=== PATIENT | female | born 1925 | race Caucasian/White ===

== ENCOUNTER 2016-05-25 22:18 | Inpatient (IN) | payer MEDICARE, OTHER ==
[2016-05-25] MEDS ORDERED: NS 0.9% 1000 ML* 1,000 ML IV SCH (22:45)
[2016-05-25 23:00] LABS: Hematocrit 37 % (35-47); Mean Corpuscular HGB Conc 33 g/dl (31-36); Mean Corpuscular Hemoglobin 29 pg (27-31); Mean Corpuscular Volume 88 fL (80-97); Mean Platelet Volume 8 um3 (7.4-10.4); Red Blood Count 4.18 10^6/ul (4.0-5.4); Red Cell Distribution Width 15 % (10.5-15); White Blood Count 13.1 10^3/ul (3.5-10.8)
[2016-05-25 23:16] LABS: Albumin 3.9 g/dL (3.2-5.2); C Reactive Protein 13.42 mg/L (< 5.00); Calcium 9.4 mg/dL (8.6-10.3); EGFR African American 31.4 (>60); EGFR Non-African American 24.4 (>60); Globulin 3.5 g/dL (2-4); Magnesium 1.8 mg/dL (1.9-2.7); Potassium 3.5 mmol/L (3.5-5.0); Total Bilirubin 0.8 mg/dL (0.2-1.0); Total Protein 7.4 g/dL (6.4-8.9)
[2016-05-25 23:29] LABS: Troponin I 0.06 ng/mL (<0.04)
[2016-05-25 23:59] LABS: TSH (Thyroid Stimulating Horm) 0.67 mcIU/mL (0.34-5.60)
[2016-05-26] MEDS ORDERED: cefTRIAXone(*) 1 GM in NS 0.9% 50 ML* 50 ML IVPB ONE (00:03)
--- NOTE | 2016-05-26 00:56 | ED ---
Vinod Cabezas Adam, scribed for Brandon Tuttle MD on 05/25/16 at 2240 . Complex/Multi-Sys Presentation - HPI Summary HPI Summary: Pt is an 89 year old female presenting with malaise, weakness, and frequent urination for the past 2 days. She states that she came in because her daughter was concerned that she might fall because of the increased weakness. Pt has CHF and is on o2 at night at home. EMS reported that her o2 sat was in the 80's upon their arrival tonight. She reports feeling SOB as well as having a cough. She also has a low-grade fever of 100.5 in the ED. Pt also c/o chronic edema in her ankles and frequent constipation. She has been urinating frequently over the past 2 days but she denies any burning sensation, abdominal pain, or confusion. PMHx includes CHF, CAD, HTN, HLD, and peripheral vascular disease. She is on Lasix. - History Of Current Complaint Chief Complaint: EDGeneral Time Seen by Provider: 05/25/16 22:23 Hx Obtained From: Patient Onset/Duration: Gradual Onset, Lasting Days, Still Present Timing: Constant Severity Currently: Moderate Severity Initially: Moderate Aggravating Factor(s): Nothing Alleviating Factor(s): Nothing Associated Signs And Symptoms: Positive: Weakness, SOB, Cough, Edema, Fever, Other - Constipation. Negative: Confusion, Abdominal Pain - Allergies/Home Medications Allergies/Adverse Reactions: Allergies Allergy/AdvReac Type Severity Reaction Status Date / Time No Known Allergies Allergy Verified 12/12/15 13:42 PMH/Surg Hx/FS Hx/Imm Hx Cardiovascular History: Reports: Hx Angina, Hx Angioplasty, Hx Congenital Heart Disease, Hx Congestive Heart Failure, Hx Coronary Artery Disease, Hx Hypercholesterolemia, Hx Hypertension - CONTROL WITH MEDS, Hx Peripheral Vascular Disease, Hx Rheumatic Fever - HX OF, Hx Syncope, Other Cardiovascular Problems/Disorders - Rheumatic Heart Disease since 12 yo Denies: Hx Myocardial Infarction, Hx Valvular Heart Disease Respiratory History: Reports: Hx Sleep Apnea - MILD 2 LITERS OXYGEN WITH NASAL CANNULA Denies: Hx Asthma, Hx Chronic Obstructive Pulmonary Disease (COPD) History: Reports: Other Problems/Disorders - INCONTINENCE, HX OF BLADDER INFECTION - SYSTEMIC Musculoskeletal History: Reports: Hx Arthritis - MINOR Sensory History: Reports: Hx Cataracts - HX OF, Hx Contacts or Glasses - GLASSES - RARELY WEARS Denies: Hx Hearing Aid - HEARING PROBLEMS BUT NO HEARING AID Opthamlomology History: Reports: Hx Cataracts - HX OF, Hx Contacts or Glasses - GLASSES - RARELY WEARS - Surgical History Surgery Procedure, Year, and Place: 193 TONSILLECTOMY. 1960 HYSTERECTOMY,. 2010 BILATERAL CATARACT EXTRACTION WITH IOL IMPLANT, [place], [place]. 1985 ANGIOPLASTY, [place]. HEMORROIDECTOMY AND PELVIC MASS,. 08/2014 [place]PL[place] [employer] [place] [facility] [place] [facility] [place] Anesthesia Reactions: No - Immunization History Date of Tetanus Vaccine: unk Date of Influenza Vaccine: fall 2015 Infectious Disease History: No Infectious Disease History: Denies: Traveled Outside the [place] in Last 30 Days - Family History Known Family History: Positive: Cardiac Disease - CAD (mother) - Social History Occupation: Retired Lives: With Family - Daughter Alcohol Use: None Hx Substance Use: No Substance Use Type: Reports: None Hx Tobacco Use: No Smoking Status (MU): Former Smoker Type: Cigarettes Have You Smoked in the Last Year: No Review of Systems Positive: Fever, Fatigue Positive: Shortness Of Breath, Cough Positive: Other - Constipation. Negative: Abdominal Pain Positive: frequency. Negative: burning Positive: Edema Positive: Weakness - Generalized All Other Systems Reviewed And Are Negative: Yes Physical Exam Triage Information Reviewed: Yes Vital Signs On Initial Exam: Initial Vitals Temp Pulse Resp BP Pulse Ox 100.5 F 84 18 144/56 96 05/25/16 22:23 05/25/16 22:23 05/25/16 22:23 05/25/16 22:23 05/25/16 22:23 Vital Signs Reviewed: Yes Appearance: Positive: Well-Appearing, No Pain Distress Skin: Positive: Warm, Skin Color Reflects Adequate Perfusion, Dry Head/Face: Positive: Normal Head/Face Inspection Eyes: Positive: EOMI, HUNTER ENT: Positive: Normal ENT inspection Neck: Positive: Supple, Nontender Respiratory/Lung Sounds: Positive: Clear to Auscultation, Breath Sounds Present Cardiovascular: Positive: RRR Abdomen Description: Positive: Nontender, Soft Bowel Sounds: Positive: Present Musculoskeletal: Positive: Normal, Strength/ROM Intact Neurological: Positive: Normal, Sensory/Motor Intact, Alert, Oriented to Person Place, Time Psychiatric: Positive: Affect/Mood Appropriate - [place] Coma Scale Coma Scale Total: 15 Diagnostics - Vital Signs Vital Signs Temp Pulse Resp BP Pulse Ox 05/25/16 22:23 100.5 F 84 18 144/56 96 - Laboratory Lab Results: Lab Results 05/25/16 05/25/16 05/25/16 Range/Units 22:50 22:50 22:50 WBC 13.1 H (3.5-10.8) 10^3/ul RBC 4.18 (4.0-5.4) 10^6/ul Hgb 12.0 (12.0-16.0) g/dl Hct 37 (35-47) % MCV 88 (80-97) fL MCH 29 (27-31) pg MCHC 33 (31-36) g/dl RDW 15 (10.5-15) % Plt Count 204 (150-450) 10^3/ul MPV 8 (7.4-10.4) um3 Neut % (Auto) 93.7 H (38-83) % Lymph % (Auto) 2.6 L (25-47) % Hale % (Auto) 3.3 (1-9) % Eos % (Auto) 0 (0-6) % Baso % (Auto) 0.4 (0-2) % Absolute Neuts (auto) 12.3 H (1.5-7.7) 10^3/ul Absolute Lymphs (auto) 0.3 L (1.0-4.8) 10^3/ul Absolute Monos (auto) 0.4 (0-0.8) 10^3/ul Absolute Eos (auto) 0 (0-0.6) 10^3/ul Absolute Basos (auto) 0.1 (0-0.2) 10^3/ul Absolute Nucleated RBC 0 10^3/ul Nucleated RBC % 0 INR (Anticoag Therapy) 2.12 H (0.89-1.11) APTT 39.7 H (26.0-36.3) seconds Sodium 138 (133-145) mmol/L Potassium 3.5 (3.5-5.0) mmol/L Chloride 97 L (101-111) mmol/L Carbon Dioxide 31 (22-32) mmol/L Anion Gap 10 (2-11) mmol/L BUN 29 H (6-24) mg/dL Creatinine 1.93 H (0.51-0.95) mg/dL Est GFR ( Amer) 31.4 (>60) Est GFR (Non-Af Amer) 24.4 (>60) BUN/Creatinine Ratio 15.0 (8-20) Glucose 138 H (70-100) mg/dL Lactic Acid (0.5-2.0) mmol/L Calcium 9.4 (8.6-10.3) mg/dL Magnesium 1.8 L (1.9-2.7) mg/dL Total Bilirubin 0.80 (0.2-1.0) mg/dL AST 14 (13-39) U/L ALT 7 (7-52) U/L Alkaline Phosphatase 81 (34-104) U/L Troponin I 0.06 H* (<0.04) ng/mL C-Reactive Protein 13.42 H (< 5.00) mg/L B-Natriuretic Peptide ( - 100) pg/mL Total Protein 7.4 (6.4-8.9) g/dL Albumin 3.9 (3.2-5.2) g/dL Globulin 3.5 (2-4) g/dL Albumin/Globulin Ratio 1.1 (1-3) Lipase 31 (11.0-82.0) U/L TSH 0.67 (0.34-5.60) mcIU/mL 05/25/16 05/25/16 Range/Units 22:50 22:50 WBC (3.5-10.8) 10^3/ul RBC (4.0-5.4) 10^6/ul Hgb (12.0-16.0) g/dl Hct (35-47) % MCV (80-97) fL MCH (27-31) pg MCHC (31-36) g/dl RDW (10.5-15) % Plt Count (150-450) 10^3/ul MPV (7.4-10.4) um3 Neut % (Auto) (38-83) % Lymph % (Auto) (25-47) % Hale % (Auto) (1-9) % Eos % (Auto) (0-6) % Baso % (Auto) (0-2) % Absolute Neuts (auto) (1.5-7.7) 10^3/ul Absolute Lymphs (auto) (1.0-4.8) 10^3/ul Absolute Monos (auto) (0-0.8) 10^3/ul Absolute Eos (auto) (0-0.6) 10^3/ul Absolute Basos (auto) (0-0.2) 10^3/ul Absolute Nucleated RBC 10^3/ul Nucleated RBC % INR (Anticoag Therapy) (0.89-1.11) APTT (26.0-36.3) seconds Sodium (133-145) mmol/L Potassium (3.5-5.0) mmol/L Chloride (101-111) mmol/L Carbon Dioxide (22-32) mmol/L Anion Gap (2-11) mmol/L BUN (6-24) mg/dL Creatinine (0.51-0.95) mg/dL Est GFR ( Amer) (>60) Est GFR (Non-Af Amer) (>60) BUN/Creatinine Ratio (8-20) Glucose (70-100) mg/dL Lactic Acid 0.9 (0.5-2.0) mmol/L Calcium (8.6-10.3) mg/dL Magnesium (1.9-2.7) mg/dL Total Bilirubin (0.2-1.0) mg/dL AST (13-39) U/L ALT (7-52) U/L Alkaline Phosphatase (34-104) U/L Troponin I (<0.04) ng/mL C-Reactive Protein (< 5.00) mg/L B-Natriuretic Peptide 491 H ( - 100) pg/mL Total Protein (6.4-8.9) g/dL Albumin (3.2-5.2) g/dL Globulin (2-4) g/dL Albumin/Globulin Ratio (1-3) Lipase (11.0-82.0) U/L TSH (0.34-5.60) mcIU/mL Result Diagrams: 05/25/16 22:50 05/25/16 22:50 Lab Statement: Any lab studies that have been ordered have been reviewed, and results considered in the medical decision making process. - Additional Comments Diagnostic Additional Comments: Troponin I - 0.06 Complex Multi-Symp Course/Dx Assessment/Plan: ADMIT HOSPITALIST STABLE. - Diagnoses Provider Diagnoses: Weakness, Fever - Physician Notifications Discussed Care Of Patient With: Dr. Rodas (Hospitalist) at 23:55. Discharge - Discharge Plan Condition: Stable Disposition: ADMITTED TO [facility] documentation as recorded by the Vinod bennett Adam accurately reflects the service I personally performed and the decisions made by me, Brandon Tuttle MD.
[2016-05-26] MEDS ORDERED: Azithromycin IV(*) 500 MG in NS 0.9% 250 ML* 250 ML IVPB ONE (01:10)
[2016-05-26] MEDS ORDERED: Docusate CAP* 100 MG PO PRN (01:11)
[2016-05-26] MEDS ORDERED: Senna TAB PO PRN (01:11)
[2016-05-26] MEDS ORDERED: Ondansetron INJ* 2 MG/ML VIAL IV PRN (01:11)
[2016-05-26] MEDS ORDERED: Al Hydrox/Mg Hydrox/Simet LIQ* 30 ML UDC PO PRN (01:11)
[2016-05-26] MEDS ORDERED: Albuterol/Ipratropium NEB.SOL* Albuterol 2.5 MG/Ipratropium 0.5 MG 3 ML INH PRN (01:12)
[2016-05-26] MEDS ORDERED: Albuterol 2.5 MG/3 ML NEB.SOL* (0.083%) INH PRN (01:13)
[2016-05-26] MEDS: Acetaminophen TAB* 325 MG PO PRN ×2 (02:10→19:54)
[2016-05-26 02:25] LABS: Urine Bacteria 1+ (Absent); Urine Bilirubin Negative (Negative); Urine Glucose Negative (Negative); Urine Nitrite Negative (Negative)
--- NOTE | 2016-05-26 04:32 | HP ---
HISTORY AND PHYSICAL: DATE OF ADMISSION: 05/26/16. TIME OF EVALUATION: 0100. PRIMARY CARE PHYSICIAN: Ana Luisa Oden NP. CHIEF COMPLAINT: Weakness and cough. HISTORY OF PRESENT ILLNESS: This is an 89-year-old female with a past medical history of diastolic heart failure, paroxysmal atrial fibrillation, COPD, on 2 L at bedtime, who presents to the emergency room with worsening cough. The daughter is at the bedside, who provides most of the history. She states for the past three weeks she has had a clear productive cough off and on that was thought to be related to her heart and she has been doubled on her doses of Lasix and potassium chloride by Dr. Malave on Mondays, Wednesdays and Fridays. Today, the cough persisted and got worse and the patient was more lethargic and weak and had a low grade temp. She also noted that her saturations were in the 80s at home and her daughter came to see her and she was working harder to breathe, so they called the EMS for further evaluation. The patient denies any chest pain. No nausea, vomiting. She has had loose stools over the past few days. No abdominal pain. No headache just a persistent productive cough. She is also concerned about her worsening urinary incontinence secondary to the persistent cough. When she increased her oxygen from 1 L to 3 L, her sat went from the 80s to 90s. Otherwise, remainder of the review of system is negative. In emergency room, the patient had labs, imaging. She was given 1 gram of ceftriaxone, 500 mg of azithromycin and was referred to the hospitalist service for further evaluation. PAST MEDICAL HISTORY: 1. History of breast cancer, status post mastectomy in October 2015. 2. COPD on 2 L of oxygen at bedtime. 3. History of moderate aortic stenosis. 4. Peripheral vascular disease. 5. Congestive heart failure with preserved EF. 6. Coronary artery disease. 7. CKD. 8. Paroxysmal atrial fibrillation. 9. Hyperlipidemia. 10. Hypertension. MEDICATIONS: The medications needed to be clarified. The patient was not clear on the dosages. 1. Xarelto in the morning. 2. Metoprolol 25 mg in the morning 50 mg in the evening. 3. Cilostazol p.o. b.i.d. 4. Multaq p.o. b.i.d. 5. Pravastatin at bedtime. 6. Lasix double dose on Mondays, Wednesdays, Fridays. 7. Klor-Con double dose on Mondays, Wednesdays, Fridays as well. ALLERGIES: No known drug allergies. SOCIAL HISTORY: The patient lives alone in an apartment. She does have a caregiver that comes in every morning to help with getting her ready and showering and her daughter visits frequently. Her daughter is Seble, who is also her healthcare proxy ([phone]). The patient quit smoking over 40 years ago, which she has 20-pack year history. No alcohol use. MOLST form, the daughter is going to bring in. She is a DNR/DNI. REVIEW OF SYSTEMS: As mentioned in the HPI. FAMILY HISTORY: Reviewed and noncontributory. PHYSICAL EXAMINATION GENERAL: Mild respiratory distress, lethargic, but awakes easily. Her daughter is at the bedside. VITAL SIGNS: T-max 100.5, pulse rate 84, respiratory rate 18, oxygen saturation 96% on 2 L, blood pressure 144/56. HEENT: Pupils equal and reactive and anicteric. Head: Normocephalic. Oropharynx: Mucous membranes dry. NECK: Supple. No lymphadenopathy. RESPIRATORY: Poor respiratory effort. Poor aeration. Unable to appreciate any adventitious breath sounds. CARDIAC: Systolic murmur heard throughout all bases. Regular rate and rhythm. ABDOMEN: Soft, nontender, nondistended. EXTREMITIES: No clubbing, cyanosis, or edema. +1 DPs. NEUROLOGIC: Alert and oriented x3. No focal neurologic deficits. LABORATORY DATA: White count 13.1, hemoglobin 12, hematocrit 37, platelets 204. INR 2.12. Sodium 138, potassium 6.5, chloride 97, bicarb 31, BUN 29, creatinine 1.93. Mag 1.8. Troponin 0.06. BNP 491. Chest x-ray, no significant change from prior chest x-rays. EKG is not yet done. ASSESSMENT AND PLAN: This is an 89-year-old female with a past medical history of chronic obstructive pulmonary disease, on oxygen at 2 L and diastolic heart failure, who presents to the emergency room with worsening cough and low-grade temp. 1. Cough. Assessment: The patient likely with community-acquired pneumonia. I suspect her chest x-ray will change once she was given fluid resuscitation. Could also be chronic obstructive pulmonary disease exacerbation, although she has never been on inhalers in the past. I suspect that she may benefit from them. Plan: We will continue her on IV fluids. We will change her antibiotics to Levaquin. We will give her a dose of 750 mg and then renally dose it depending on what her renal function is in the morning. We will not order any more Levaquin, but this will need to be followed up. We will also do trial DuoNeb and albuterol as needed. Follow up on her blood cultures and her urine. Chronic medical problems. 2. Paroxysmal atrial fibrillation, on anticoagulation. The patient's creatinine clearance is calculated at 16. We will continue her on Xarelto at 15 mg renally dosed, but we would reevaluate the patient with renal failure and 89, on anticoagulation. The patient appears to be in sinus. We will follow up on EKG. We will continue her on metoprolol and her Multaq. 3. Chronic kidney disease. The patient displayed worsening in her renal function likely in the setting of infectious etiology. We will hold her Lasix at this time. Renally dose her medications. 4. Peripheral vascular disease. Continue her cilostazol. 5. Hyperlipidemia. We will hold her pravastatin, as it is nonformulary. 6. Congestive heart failure with preserved EF. We will hold her Lasix in the setting of pneumonia. 7. FEN. We will place the patient on heart healthy diet with gentle IV fluids. 8. DVT prophylaxis. The patient is on Xarelto. 9. Code status. The patient is a DNR/DNI. Her daughter is going to bring in her MOLST form. PATIENT TIME: Greater than 50 minutes was spent doing the history and physical , more than half the time spent in direct patient contact. CC: Ana Luisa Oden NP.* [id number]/[facility] #: [id number] MAYANK
[2016-05-26 05:38] LABS: Hematocrit 33 % (35-47); Hemoglobin 10.5 g/dl (12.0-16.0); Mean Corpuscular HGB Conc 32 g/dl (31-36); Mean Corpuscular Hemoglobin 28 pg (27-31); Mean Corpuscular Volume 88 fL (80-97); Mean Platelet Volume 8 um3 (7.4-10.4); Red Blood Count 3.69 10^6/ul (4.0-5.4); Red Cell Distribution Width 15 % (10.5-15); White Blood Count 14.6 10^3/ul (3.5-10.8)
[2016-05-26 05:40] LABS: BUN/Creatinine Ratio 15.2 (8-20); Calcium 8.5 mg/dL (8.6-10.3); EGFR African American 39.6 (>60); EGFR Non-African American 30.8 (>60); Potassium 3.4 mmol/L (3.5-5.0)
[2016-05-26] MEDS: NS 0.9% 1000 ML* 1,000 ML IV SCH ×2 (05:43→07:43)
[2016-05-26 05:46] LABS: Troponin I 0.08 ng/mL (<0.04)
[2016-05-26] MEDS ORDERED: Heparin VIAL(*) 5000 UNITS/ML VIAL (FIVE THOUSAND) SUBCUT SCH (06:00)
--- NOTE | 2016-05-26 07:43 | RAD ---
INDICATION: Weakness and fever COMPARISON: Most recent comparison chest x-rays dated September 07, 2015 TECHNIQUE: Single AP portable view of the chest was obtained. FINDINGS: Image quality is compromised due to the relative inferiority of a portable chest x-ray. The heart and mediastinum exhibit normal size and contour. Again seen are horizontal densities at the bilateral lung bases larger on the right than the left. There is stable patchy density as well as linear density overlying the mid level and right lower lobe when compared to the previous chest x-ray. Remaining visualized lungs are clear. Visualized bones are normal for the patient's age. IMPRESSION: Small interval increase in apparent right greater than left pleural effusions.
[2016-05-26] MEDS: Cilostazol TAB* 100 MG PO SCH ×2 (08:47→19:54)
[2016-05-26] MEDS: Oseltamivir CAP* 30 MG CAP PO SCH ×2 (08:47→09:20)
[2016-05-26] MEDS: Rivaroxaban TAB(*) 15 MG PO SCH (08:48)
[2016-05-26] MEDS: Dronedarone TAB* 400 MG PO SCH ×2 (08:48→19:54)
[2016-05-26] MEDS: Metoprolol Tartrate TAB* 25 MG PO SCH ×2 (08:48→19:54)
[2016-05-26] MEDS ORDERED: Piperac/Tazob 3.375 gm in NS* 3.375 GM/100 ML BAG IVPB SCH (09:00)
[2016-05-26] MEDS ORDERED: NS 0.9% 1000 ML* 1,000 ML IV SCH (09:57)
--- NOTE | 2016-05-26 10:02 | PN ---
Subjective Date of Service: 05/26/16 Interval History: HOSPITALIST PROGRESS NOTE Patient seen and examined at bedside. She is lethargic, arousable, states she doesn't feel well and is not hungry. More responsive when her daughter was present and was able to eat some ice cream. Family History: Unchanged from Admission Social History: Unchanged from Admission Past Medical History: Unchanged from Admission Objective Active Medications: Acetaminophen (Tylenol Tab*) 650 mg PO Q4H PRN PRN Reason: FEVER/PAIN Last Admin: 05/26/16 02:10 Dose: 650 mg Al Hydrox/Mg Hydrox/Simethicone (Maalox Plus*) 30 ml PO Q6H PRN PRN Reason: INDIGESTION Albuterol (Ventolin 2.5 Mg/3 Ml Neb.Elba*) 2.5 mg INH Q2H PRN PRN Reason: SOB/WHEEZING Albuterol/Ipratropium (Duoneb Neb.Elba*) 1 neb INH Q4H PRN PRN Reason: SOB/WHEEZING Cilostazol (Pletal Tab*) 100 mg PO BID [facility] Last Admin: 05/26/16 08:47 Dose: 100 mg Docusate Sodium (Colace Cap*) 100 mg PO BID PRN PRN Reason: CONSTIPATION Dronedarone (Multaq Tab*) 400 mg PO BID [facility] Last Admin: 05/26/16 08:48 Dose: 400 mg Sodium Chloride (Ns 0.9% 1000 Ml*) 1,000 mls @ 100 mls/hr IV PER RATE [facility] Doxycycline Hyclate 100 mg/ (Sodium Chloride) 250 mls @ 250 mls/hr IVPB Q12H [facility] Metoprolol Tartrate (Lopressor Tab*) 25 mg PO BID [facility] Last Admin: 05/26/16 08:48 Dose: 25 mg Ondansetron HCl (Zofran Inj*) 4 mg IV Q4H PRN PRN Reason: NAUSEA/VOMITING Oseltamivir Phosphate (Tamiflu Cap*) 30 mg PO DAILY [facility] Last Admin: 05/26/16 09:20 Dose: Not Given Rivaroxaban (Xarelto(*)) 15 mg PO DAILY [facility] Last Admin: 05/26/16 08:48 Dose: 15 mg Senna (Senokot Tab*) 1 tab PO BID PRN PRN Reason: CONSTIPATION Vital Signs 05/26/16 05/26/16 05/26/16 03:33 05:25 07:50 Temperature 98.8 F Pulse Rate 72 Respiratory 16 20 Rate Blood Pressure 174/75 145/42 (mmHg) O2 Sat by Pulse 100 Oximetry Oxygen Devices in Use Now: Nasal Cannula Appearance: Elderly lady lying in bed in NAD. Eyes: No Scleral Icterus Ears/Nose/Mouth/Throat: Mucous Membranes Moist Neck: Trachea Midline Respiratory: Symmetrical Chest Expansion and Respiratory Effort, - - BS+ bilaterally coarse with no added sounds Cardiovascular: RRR - Normal S1 and S2 Abdominal: NL Sounds; No Tenderness; No Distention Extremities: No Edema Neurological: - - Lethargic, arousable to voice, oriented to self, MAGANA, but with generalized weakness Lines/Tubes/Other Access: Clean, Dry and Intact Peripheral IV Nutrition: Taking PO's Result Diagrams: 05/26/16 04:58 05/26/16 04:58 Assess/Plan/Problems-Billing Assessment: Mrs. Beasley is an 89yo F with PMH of breast CA s/p left lumpectomy November 2015 , COPD on home O2 2 liters, moderate , PVD, diastolic CHF, CAD, CKD stage 3, paroxysmal Afib, HLD, HTN, who presented to ED with weakness and cough, found to have Influenza A. - Patient Problems (1) Sepsis Comment: - Met sepsis criteria with fever and tachycardia. - Source is Influenza A. (2) Influenza A Comment: - Patient presented with c/o weakness, cough, Influenza A was positive. - As per daughter, patient received Flu and Pneumonia vaccines. - Start Tamiflu. (3) Pneumonia Comment: - CxR shows mild worsening of her chronic right pleural effusion and some suggestion of right base infiltrate. This could be bacterial on top of her viral infection. - Will switch antibiotics to Doxycyline. (4) Chronic hypoxemic respiratory failure Comment: - Continue supplemental O2. (5) Paroxysmal atrial fibrillation Comment: - Patient is NSR. - Continue Multaq. - Continue Rivaroxaban 15mg/day (renally adjusted dose). (6) Peripheral vascular disease Comment: - Continue Cilostazol. (7) Dyslipidemia Comment: - Continue statin. (8) Diastolic CHF Comment: - Stable. - Furosemide on hold in the setting of infection. (9) Elevated troponin Comment: - Secondary to demand ischemia in the setting of sepsis. (10) DVT prophylaxis Comment: - Rivaroxaban. (11) DNR (do not resuscitate) Status and Disposition: Inpatient. Daughter updated at bedside.
[2016-05-26] MEDS: DOXYcycline IV* 100 MG in NS 0.9% 250 ML* 250 ML IVPB SCH ×2 (11:16→22:27)
[2016-05-26] MEDS ORDERED: Potassium Chloride LIQUID* 20 MEQ PACKET PO ONE (17:00)
[2016-05-26] MEDS: Atorvastatin* 10 MG TAB PO SCH (17:12)
[2016-05-26] MEDS: KCL 10 MEQ/50 ML IVPREMIX* 10 MEQ/50 ML BAG IV SCH ×3 (17:15→21:10)
[2016-05-26] MEDS ORDERED: NS 0.9% 250 ML* 250 ML ONE (21:06)
[2016-05-26] MEDS ORDERED: methylPREDNISolone 125 MG* 2 ML VIAL IV ONE (21:24)
[2016-05-27] MEDS ORDERED: Levofloxacin 750 MG IVPREMIX(* 750 MG/150 ML BAG IVPB ONE (01:23)
[2016-05-27] MEDS ORDERED: Azithromycin IV(*) 250 MG in NS 0.9% 250 ML* 250 ML IVPB SCH (02:00)
[2016-05-27 05:29] LABS: Hematocrit 31 % (35-47); Hemoglobin 10.1 g/dl (12.0-16.0); Mean Corpuscular HGB Conc 32 g/dl (31-36); Mean Corpuscular Hemoglobin 29 pg (27-31); Mean Corpuscular Volume 90 fL (80-97); Mean Platelet Volume 9 um3 (7.4-10.4); Red Blood Count 3.47 10^6/ul (4.0-5.4); Red Cell Distribution Width 15 % (10.5-15); White Blood Count 8.8 10^3/ul (3.5-10.8)
[2016-05-27 05:45] LABS: Calcium 8.4 mg/dL (8.6-10.3); EGFR African American 36.1 (>60); EGFR Non-African American 28.1 (>60); Potassium 4.3 mmol/L (3.5-5.0)
--- NOTE | 2016-05-27 07:35 | RAD ---
INDICATION: Increased shortness of breath. COMPARISON: Comparison is made with prior chest x-ray study from May 25 2016. TECHNIQUE: A portable view of the chest was obtained. FINDINGS: The heart appears mildly enlarged for this portable exam and unchanged. There are bibasilar infiltrates which have increased from the prior exam. There are small to moderate size bilateral pleural effusions right greater than left which appear unchanged. IMPRESSION: 1. BIBASILAR INFILTRATES, INCREASED. 2. BILATERAL PLEURAL EFFUSIONS, UNCHANGED.
[2016-05-27] MEDS ORDERED: NS 0.9% 1000 ML* 1,000 ML IV SCH (07:46)
[2016-05-27] MEDS: Cilostazol TAB* 100 MG PO SCH ×2 (09:19→21:27)
[2016-05-27] MEDS: Dronedarone TAB* 400 MG PO SCH ×2 (09:20→21:28)
[2016-05-27] MEDS: Metoprolol Tartrate TAB* 25 MG PO SCH ×2 (09:21→21:32)
[2016-05-27] MEDS: Rivaroxaban TAB(*) 15 MG PO SCH (09:22)
[2016-05-27] MEDS: Oseltamivir CAP* 30 MG CAP PO SCH (09:23)
[2016-05-27] MEDS: DOXYcycline IV* 100 MG in NS 0.9% 250 ML* 250 ML IVPB SCH ×2 (09:57→21:28)
--- NOTE | 2016-05-27 12:22 | PN ---
Subjective Date of Service: 05/27/16 Interval History: HOSPITALIST PROGRESS NOTE Patient seen and examined at bedside. She feels much better today. Doesn't remember much of yesterday, but states she feels stronger. Had cereal for breakfast and appetite is coming back. Denies CP , palpitations, dyspnea but has some moist cough. Family History: Unchanged from Admission Social History: Unchanged from Admission Past Medical History: Unchanged from Admission Objective Active Medications: Acetaminophen (Tylenol Tab*) 650 mg PO Q4H PRN PRN Reason: FEVER/PAIN Last Admin: 05/26/16 19:54 Dose: 650 mg Al Hydrox/Mg Hydrox/Simethicone (Maalox Plus*) 30 ml PO Q6H PRN PRN Reason: INDIGESTION Albuterol (Ventolin 2.5 Mg/3 Ml Neb.Elba*) 2.5 mg INH Q2H PRN PRN Reason: SOB/WHEEZING Albuterol/Ipratropium (Duoneb Neb.Elba*) 1 neb INH Q4H PRN PRN Reason: SOB/WHEEZING Last Admin: 05/26/16 20:30 Dose: 1 neb Atorvastatin Calcium (Lipitor*) 10 mg PO 1700 [facility] Last Admin: 05/26/16 17:12 Dose: 10 mg Cilostazol (Pletal Tab*) 100 mg PO BID [facility] Last Admin: 05/27/16 09:19 Dose: 100 mg Docusate Sodium (Colace Cap*) 100 mg PO BID PRN PRN Reason: CONSTIPATION Dronedarone (Multaq Tab*) 400 mg PO BID [facility] Last Admin: 05/27/16 09:20 Dose: 400 mg Doxycycline Hyclate 100 mg/ (Sodium Chloride) 250 mls @ 250 mls/hr IVPB Q12H [facility] Last Admin: 05/27/16 09:57 Dose: 250 mls/hr Metoprolol Tartrate (Lopressor Tab*) 25 mg PO BID [facility] Last Admin: 05/27/16 09:21 Dose: 25 mg Ondansetron HCl (Zofran Inj*) 4 mg IV Q4H PRN PRN Reason: NAUSEA/VOMITING Oseltamivir Phosphate (Tamiflu Cap*) 30 mg PO DAILY [facility] Last Admin: 05/27/16 09:23 Dose: 30 mg Rivaroxaban (Xarelto(*)) 15 mg PO DAILY [facility] Last Admin: 05/27/16 09:22 Dose: 15 mg Senna (Senokot Tab*) 1 tab PO BID PRN PRN Reason: CONSTIPATION Vital Signs 05/27/16 11:20 Temperature 98.5 F Pulse Rate 75 Respiratory 20 Rate Blood Pressure 143/46 (mmHg) O2 Sat by Pulse 97 Oximetry Oxygen Devices in Use Now: Nasal Cannula Appearance: Pleasant elderly lady sitting up in bed in NAD. Eyes: No Scleral Icterus Ears/Nose/Mouth/Throat: Mucous Membranes Moist Neck: Trachea Midline Respiratory: Symmetrical Chest Expansion and Respiratory Effort, Clear to Auscultation - decreased in right base Cardiovascular: RRR - Normal S1 and S2 Abdominal: NL Sounds; No Tenderness; No Distention Extremities: No Edema Neurological: Alert and Oriented x 3, NL Muscle Strength and Tone Lines/Tubes/Other Access: Clean, Dry and Intact Peripheral IV Nutrition: Taking PO's Result Diagrams: 05/27/16 04:52 05/27/16 04:52 Assess/Plan/Problems-Billing Assessment: Mrs. Beasley is an 89yo F with PMH of breast CA s/p left lumpectomy November 2015 , COPD on home O2 2 liters, moderate , PVD, diastolic CHF, CAD, CKD stage 3, paroxysmal Afib, HLD, HTN, who presented to ED with weakness and cough, found to have Influenza A. - Patient Problems (1) Sepsis Comment: - Met sepsis criteria with fever and tachycardia. - Source is Influenza A. (2) Influenza A Comment: - Patient presented with c/o weakness, cough, Influenza A was positive. - As per daughter, patient received Flu and Pneumonia vaccines. - Continue Tamiflu. - Doing much better today, mental status back to baseline. (3) Pneumonia Comment: - CxR shows mild worsening of her chronic right pleural effusion and some suggestion of right base infiltrate. This could be bacterial on top of her viral infection. - Continue Doxycyline. (4) Chronic hypoxemic respiratory failure Comment: - Continue supplemental O2. (5) Paroxysmal atrial fibrillation Comment: - Patient is NSR. - Continue Multaq. - Continue Rivaroxaban 15mg/day (renally adjusted dose). (6) Peripheral vascular disease Comment: - Continue Cilostazol. (7) Dyslipidemia Comment: - Continue statin. (8) Diastolic CHF Comment: - Stable. - Furosemide on hold in the setting of infection. (9) Elevated troponin Comment: - Secondary to demand ischemia in the setting of sepsis. - D/c Telemetry. (10) DVT prophylaxis Comment: - Rivaroxaban. (11) DNR (do not resuscitate) Status and Disposition: Inpatient.
[2016-05-27] MEDS: Atorvastatin* 10 MG TAB PO SCH (17:21)
[2016-05-27] MEDS ORDERED: NS 0.9% 250 ML* 250 ML ONE (21:24)
[2016-05-28] MEDS: DOXYcycline IV* 100 MG in NS 0.9% 250 ML* 250 ML IVPB SCH (09:42)
[2016-05-28] MEDS: Dronedarone TAB* 400 MG PO SCH ×2 (09:42→21:08)
[2016-05-28] MEDS: Metoprolol Tartrate TAB* 25 MG PO SCH ×2 (09:42→21:08)
[2016-05-28] MEDS: Cilostazol TAB* 100 MG PO SCH ×2 (09:42→21:08)
[2016-05-28] MEDS: Rivaroxaban TAB(*) 15 MG PO SCH (09:42)
[2016-05-28] MEDS: Oseltamivir CAP* 30 MG CAP PO SCH (09:42)
--- NOTE | 2016-05-28 11:18 | PN ---
Subjective Date of Service: 05/28/16 Interval History: HOSPITALIST PROGRESS NOTE Patient seen and examined at bedside. She feels well today, in good spirits. Denies dyspnea or cough. Appetite is good , tolerating diet well. Family History: Unchanged from Admission Social History: Unchanged from Admission Past Medical History: Unchanged from Admission Objective Active Medications: Acetaminophen (Tylenol Tab*) 650 mg PO Q4H PRN PRN Reason: FEVER/PAIN Last Admin: 05/26/16 19:54 Dose: 650 mg Al Hydrox/Mg Hydrox/Simethicone (Maalox Plus*) 30 ml PO Q6H PRN PRN Reason: INDIGESTION Albuterol (Ventolin 2.5 Mg/3 Ml Neb.Elba*) 2.5 mg INH Q2H PRN PRN Reason: SOB/WHEEZING Albuterol/Ipratropium (Duoneb Neb.Elba*) 1 neb INH Q4H PRN PRN Reason: SOB/WHEEZING Last Admin: 05/26/16 20:30 Dose: 1 neb Atorvastatin Calcium (Lipitor*) 10 mg PO 1700 [facility] Last Admin: 05/27/16 17:21 Dose: 10 mg Cilostazol (Pletal Tab*) 100 mg PO BID [facility] Last Admin: 05/28/16 09:42 Dose: 100 mg Docusate Sodium (Colace Cap*) 100 mg PO BID PRN PRN Reason: CONSTIPATION Dronedarone (Multaq Tab*) 400 mg PO BID [facility] Last Admin: 05/28/16 09:42 Dose: 400 mg Doxycycline Hyclate 100 mg/ (Sodium Chloride) 250 mls @ 250 mls/hr IVPB Q12H [facility] Last Admin: 05/28/16 09:42 Dose: 250 mls/hr Metoprolol Tartrate (Lopressor Tab*) 25 mg PO BID [facility] Last Admin: 05/28/16 09:42 Dose: 25 mg Ondansetron HCl (Zofran Inj*) 4 mg IV Q4H PRN PRN Reason: NAUSEA/VOMITING Oseltamivir Phosphate (Tamiflu Cap*) 30 mg PO DAILY [facility] Last Admin: 05/28/16 09:42 Dose: 30 mg Rivaroxaban (Xarelto(*)) 15 mg PO DAILY [facility] Last Admin: 05/28/16 09:42 Dose: 15 mg Senna (Senokot Tab*) 1 tab PO BID PRN PRN Reason: CONSTIPATION Vital Signs 05/28/16 05/28/16 05/28/16 00:03 05:41 07:50 Temperature 98.4 F 98.4 F 98.4 F Pulse Rate 73 86 84 Respiratory 16 16 16 Rate Blood Pressure 150/51 140/62 140/55 (mmHg) O2 Sat by Pulse 97 96 97 Oximetry Oxygen Devices in Use Now: None Appearance: Pleasant elderly lady sitting up in a chair in NAD. Eyes: No Scleral Icterus Ears/Nose/Mouth/Throat: Mucous Membranes Moist Neck: Trachea Midline Respiratory: Symmetrical Chest Expansion and Respiratory Effort, - - BS+ bilaterally with scattered on rhonchi on the right. Cardiovascular: RRR - Normal S1 and S2 Abdominal: NL Sounds; No Tenderness; No Distention Neurological: Alert and Oriented x 3, NL Muscle Strength and Tone Lines/Tubes/Other Access: Clean, Dry and Intact Peripheral IV Nutrition: Taking PO's Result Diagrams: 05/27/16 04:52 05/27/16 04:52 Assess/Plan/Problems-Billing Assessment: Mrs. Beasley is an 89yo F with PMH of breast CA s/p left lumpectomy November 2015 , COPD on home O2 2 liters, moderate , PVD, diastolic CHF, CAD, CKD stage 3, paroxysmal Afib, HLD, HTN, who presented to ED with weakness and cough, found to have Influenza A. - Patient Problems (1) Sepsis Comment: - Met sepsis criteria with fever and tachycardia. - Source is Influenza A. (2) Influenza A Comment: - Patient presented with c/o weakness, cough, Influenza A was positive. - As per daughter, patient received Flu and Pneumonia vaccines. - Continue Tamiflu #3. - Doing much better today, mental status back to baseline. (3) Pneumonia Comment: - CxR shows mild worsening of her chronic right pleural effusion and some suggestion of right base infiltrate. This could be bacterial on top of her viral infection. - Continue Doxycyline #3. (4) Chronic hypoxemic respiratory failure Comment: - On RA today - will continue nocturnal O2 and monitor. (5) Paroxysmal atrial fibrillation Comment: - Patient is NSR. - Continue Multaq. - Continue Rivaroxaban 15mg/day (renally adjusted dose). (6) Peripheral vascular disease Comment: - Continue Cilostazol. (7) Dyslipidemia Comment: - Continue statin. (8) Diastolic CHF Comment: - Stable. - Furosemide on hold in the setting of infection. (9) Elevated troponin Comment: - Secondary to demand ischemia in the setting of sepsis. (10) Physical deconditioning Comment: - PT input appreciated - plan for STR. (11) DVT prophylaxis Comment: - Rivaroxaban. (12) DNR (do not resuscitate) Status and Disposition: Inpatient.
[2016-05-28] MEDS: Atorvastatin* 10 MG TAB PO SCH (17:17)
[2016-05-28] MEDS: DOXYcycline CAP(*) 100 MG PO SCH (21:08)
[2016-05-29] MEDS: Rivaroxaban TAB(*) 15 MG PO SCH (09:22)
[2016-05-29] MEDS: Dronedarone TAB* 400 MG PO SCH ×2 (09:22→21:29)
[2016-05-29] MEDS: DOXYcycline CAP(*) 100 MG PO SCH ×2 (09:22→21:29)
[2016-05-29] MEDS: Metoprolol Tartrate TAB* 25 MG PO SCH ×2 (09:22→21:29)
[2016-05-29] MEDS: Oseltamivir CAP* 30 MG CAP PO SCH (09:22)
[2016-05-29] MEDS: Cilostazol TAB* 100 MG PO SCH ×2 (09:22→21:29)
--- NOTE | 2016-05-29 11:34 | PN ---
Subjective Date of Service: 05/29/16 Interval History: HOSPITALIST PROGRESS NOTE Patient seen and examined at bedside. She offers no new complaints today. Denies dyspnea or cough. Family History: Unchanged from Admission Social History: Unchanged from Admission Past Medical History: Unchanged from Admission Objective Active Medications: Acetaminophen (Tylenol Tab*) 650 mg PO Q4H PRN PRN Reason: FEVER/PAIN Last Admin: 05/26/16 19:54 Dose: 650 mg Al Hydrox/Mg Hydrox/Simethicone (Maalox Plus*) 30 ml PO Q6H PRN PRN Reason: INDIGESTION Albuterol (Ventolin 2.5 Mg/3 Ml Neb.Elba*) 2.5 mg INH Q2H PRN PRN Reason: SOB/WHEEZING Albuterol/Ipratropium (Duoneb Neb.Elba*) 1 neb INH Q4H PRN PRN Reason: SOB/WHEEZING Last Admin: 05/26/16 20:30 Dose: 1 neb Atorvastatin Calcium (Lipitor*) 10 mg PO 1700 [facility] Last Admin: 05/28/16 17:17 Dose: 10 mg Cilostazol (Pletal Tab*) 100 mg PO BID [facility] Last Admin: 05/29/16 09:22 Dose: 100 mg Docusate Sodium (Colace Cap*) 100 mg PO BID PRN PRN Reason: CONSTIPATION Doxycycline Hyclate (Vibramycin Cap(*)) 100 mg PO BID [facility] Last Admin: 05/29/16 09:22 Dose: 100 mg Dronedarone (Multaq Tab*) 400 mg PO BID [facility] Last Admin: 05/29/16 09:22 Dose: 400 mg Metoprolol Tartrate (Lopressor Tab*) 25 mg PO BID [facility] Last Admin: 05/29/16 09:22 Dose: 25 mg Ondansetron HCl (Zofran Inj*) 4 mg IV Q4H PRN PRN Reason: NAUSEA/VOMITING Oseltamivir Phosphate (Tamiflu Cap*) 30 mg PO DAILY [facility] Last Admin: 05/29/16 09:22 Dose: 30 mg Rivaroxaban (Xarelto(*)) 15 mg PO DAILY [facility] Last Admin: 05/29/16 09:22 Dose: 15 mg Senna (Senokot Tab*) 1 tab PO BID PRN PRN Reason: CONSTIPATION Vital Signs 05/29/16 05/29/16 05/29/16 07:26 08:00 09:06 Temperature 97.3 F Pulse Rate 78 84 Respiratory 16 16 14 Rate Blood Pressure 138/49 (mmHg) O2 Sat by Pulse 93 97 Oximetry Oxygen Devices in Use Now: None Appearance: Pleasant elderly lady sitting up in a chair in NAD. Eyes: No Scleral Icterus Ears/Nose/Mouth/Throat: Mucous Membranes Moist Neck: Trachea Midline Respiratory: Symmetrical Chest Expansion and Respiratory Effort, Clear to Auscultation Cardiovascular: RRR - Normal S1 and S2 Abdominal: NL Sounds; No Tenderness; No Distention Neurological: Alert and Oriented x 3, NL Muscle Strength and Tone Lines/Tubes/Other Access: Clean, Dry and Intact Peripheral IV Nutrition: Taking PO's Result Diagrams: 05/27/16 04:52 05/27/16 04:52 Assess/Plan/Problems-Billing Assessment: Mrs. Beasley is an 89yo F with PMH of breast CA s/p left lumpectomy November 2015 , COPD on home O2 2 liters, moderate , PVD, diastolic CHF, CAD, CKD stage 3, paroxysmal Afib, HLD, HTN, who presented to ED with weakness and cough, found to have Influenza A. - Patient Problems (1) Sepsis Comment: - Met sepsis criteria with fever and tachycardia. - Source is Influenza A. (2) Influenza A Comment: - Patient presented with c/o weakness, cough, Influenza A was positive. - Doing much better. - Continue Tamiflu #4. (3) Pneumonia Comment: - CxR shows mild worsening of her chronic right pleural effusion and some suggestion of right base infiltrate. This could be bacterial on top of her viral infection. - Continue Doxycyline #4. (4) Chronic hypoxemic respiratory failure Comment: - On RA today - will continue nocturnal O2 and monitor. (5) Paroxysmal atrial fibrillation Comment: - Patient is NSR. - Continue Multaq. - Continue Rivaroxaban 15mg/day (renally adjusted dose). (6) Peripheral vascular disease Comment: - Continue Cilostazol. (7) Dyslipidemia Comment: - Continue statin. (8) Diastolic CHF Comment: - Stable. - Furosemide on hold in the setting of infection. (9) Elevated troponin Comment: - Secondary to demand ischemia in the setting of sepsis. (10) Physical deconditioning Comment: - PT input appreciated - plan for STR. (11) DVT prophylaxis Comment: - Rivaroxaban. (12) DNR (do not resuscitate) Status and Disposition: Inpatient. Anticipate d/c to [facility] on 05/31/16.
[2016-05-29] MEDS: Atorvastatin* 10 MG TAB PO SCH (17:43)
[2016-05-30] MEDS: Rivaroxaban TAB(*) 15 MG PO SCH (09:37)
[2016-05-30] MEDS: Metoprolol Tartrate TAB* 25 MG PO SCH ×2 (09:37→21:00)
[2016-05-30] MEDS: DOXYcycline CAP(*) 100 MG PO SCH ×2 (09:37→20:59)
[2016-05-30] MEDS: Cilostazol TAB* 100 MG PO SCH ×2 (09:37→20:56)
[2016-05-30] MEDS: Oseltamivir CAP* 30 MG CAP PO SCH (09:37)
[2016-05-30] MEDS: Dronedarone TAB* 400 MG PO SCH ×2 (09:37→20:59)
--- NOTE | 2016-05-30 15:06 | PN ---
Subjective Date of Service: 05/30/16 Interval History: HOSPITALIST PROGRESS NOTE Patient seen and examined at bedside. She offers no complaints today. Family History: Unchanged from Admission Social History: Unchanged from Admission Past Medical History: Unchanged from Admission Objective Active Medications: Acetaminophen (Tylenol Tab*) 650 mg PO Q4H PRN PRN Reason: FEVER/PAIN Last Admin: 05/26/16 19:54 Dose: 650 mg Al Hydrox/Mg Hydrox/Simethicone (Maalox Plus*) 30 ml PO Q6H PRN PRN Reason: INDIGESTION Albuterol (Ventolin 2.5 Mg/3 Ml Neb.Elba*) 2.5 mg INH Q2H PRN PRN Reason: SOB/WHEEZING Albuterol/Ipratropium (Duoneb Neb.Elba*) 1 neb INH Q4H PRN PRN Reason: SOB/WHEEZING Last Admin: 05/26/16 20:30 Dose: 1 neb Atorvastatin Calcium (Lipitor*) 10 mg PO 1700 [facility] Last Admin: 05/29/16 17:43 Dose: 10 mg Cilostazol (Pletal Tab*) 100 mg PO BID [facility] Last Admin: 05/30/16 09:37 Dose: 100 mg Docusate Sodium (Colace Cap*) 100 mg PO BID PRN PRN Reason: CONSTIPATION Doxycycline Hyclate (Vibramycin Cap(*)) 100 mg PO BID [facility] Last Admin: 05/30/16 09:37 Dose: 100 mg Dronedarone (Multaq Tab*) 400 mg PO BID [facility] Last Admin: 05/30/16 09:37 Dose: 400 mg Metoprolol Tartrate (Lopressor Tab*) 25 mg PO BID [facility] Last Admin: 05/30/16 09:37 Dose: 25 mg Ondansetron HCl (Zofran Inj*) 4 mg IV Q4H PRN PRN Reason: NAUSEA/VOMITING Rivaroxaban (Xarelto(*)) 15 mg PO DAILY [facility] Last Admin: 05/30/16 09:37 Dose: 15 mg Senna (Senokot Tab*) 1 tab PO BID PRN PRN Reason: CONSTIPATION Vital Signs 05/29/16 05/30/16 05/30/16 21:37 04:43 07:45 Temperature 97.4 F 97.5 F Pulse Rate 86 78 74 Respiratory 17 14 16 Rate Blood Pressure 147/49 143/59 (mmHg) O2 Sat by Pulse 90 92 100 Oximetry Oxygen Devices in Use Now: None Appearance: Pleasant elderly lady sitting up in a chair in NAD. Eyes: No Scleral Icterus Ears/Nose/Mouth/Throat: Mucous Membranes Moist Neck: Trachea Midline Respiratory: Symmetrical Chest Expansion and Respiratory Effort, Clear to Auscultation Cardiovascular: RRR - Normal S1 and S2 Abdominal: NL Sounds; No Tenderness; No Distention Extremities: No Edema Neurological: Alert and Oriented x 3, NL Muscle Strength and Tone Lines/Tubes/Other Access: Clean, Dry and Intact Peripheral IV Nutrition: Taking PO's Result Diagrams: 05/27/16 04:52 05/27/16 04:52 Assess/Plan/Problems-Billing Assessment: Mrs. Beasley is an 89yo F with PMH of breast CA s/p left lumpectomy November 2015 , COPD on home O2 2 liters, moderate , PVD, diastolic CHF, CAD, CKD stage 3, paroxysmal Afib, HLD, HTN, who presented to ED with weakness and cough, found to have Influenza A. - Patient Problems (1) Sepsis Comment: - Met sepsis criteria with fever and tachycardia. - Source is Influenza A. (2) Influenza A Comment: - Patient presented with c/o weakness, cough, Influenza A was positive. - Doing much better. - Completed Tamiflu #5. (3) Pneumonia Comment: - CxR shows mild worsening of her chronic right pleural effusion and some suggestion of right base infiltrate. This could be bacterial on top of her viral infection. - Continue Doxycyline #5. (4) Chronic hypoxemic respiratory failure Comment: - On RA today - will continue nocturnal O2 and monitor. (5) Paroxysmal atrial fibrillation Comment: - Patient is NSR. - Continue Multaq. - Continue Rivaroxaban 15mg/day (renally adjusted dose). (6) Peripheral vascular disease Comment: - Continue Cilostazol. (7) Dyslipidemia Comment: - Continue statin. (8) Diastolic CHF Comment: - Stable. - Furosemide on hold in the setting of infection. (9) Elevated troponin Comment: - Secondary to demand ischemia in the setting of sepsis. (10) Physical deconditioning Comment: - PT input appreciated - plan for STR. (11) DVT prophylaxis Comment: - Rivaroxaban. (12) DNR (do not resuscitate) Status and Disposition: Inpatient. Anticipate d/c to [facility] on 05/31/16.
[2016-05-30] MEDS: Atorvastatin* 10 MG TAB PO SCH (16:42)
[2016-05-30] MEDS ORDERED: Nitroglycerin 0.4 MG/HR PATCH* (10 MG) TRANSDERM SCH (21:00)
--- NOTE | 2016-05-30 21:15 | DS ---
DISCHARGE SUMMARY: DATE OF ADMISSION: 05/26/16 DATE OF DISCHARGE: 05/31/16 PRIMARY CARE PROVIDER: Ana Luisa Oden NP TIRE REPAIR MECHANIC: Dr. Malave. DISCHARGE DIAGNOSES: 1. Sepsis. 2. Influenza A. 3. Community-acquired pneumonia. 4. Chronic hypoxemic respiratory failure. 5. Leukocytosis. 6. Mild hypokalemia. 7. Mild troponin elevation secondary to increased demand. SECONDARY DIAGNOSES: 1. History of breast cancer, status post mastectomy in October 2015. 2. Chronic obstructive pulmonary disease, on 2 L of oxygen at night. 3. Moderate aortic stenosis. 4. Peripheral vascular disease. 5. Diastolic congestive heart failure. 6. Coronary artery disease. 7. Chronic kidney disease, stage 3. 8. Paroxysmal atrial fibrillation. 9. Hyperlipidemia. 10. Hypertension. MEDICATION LIST: 1. Potassium chloride 15 mEq on Tuesday, Tuesday, , and Tuesday; 30 mEq on Tuesday, Tuesday, and Tuesday. 2. Metoprolol succinate 25 mg p.o. in the morning and 50 mg p.o. in the evening. 3. Furosemide 40 mg p.o. Tuesday, Tuesday, Tuesday. 4. Furosemide 20 mg p.o. Tuesday, Tuesday, , and Tuesday. 5. Pravastatin 20 mg p.o. at bedtime. 6. Nitro patch 0.4 mg an hour topical at bedtime. 7. Dronedarone, Multaq 400 mg p.o. b.i.d. 8. Anastrozole 1 mg p.o. daily. 9. Rivaroxaban 15 mg p.o. q.a.m. 10. Cilostazol 50 mg p.o. b.i.d. 11. Acetaminophen 650 mg p.o. q.4 hours p.r.n. pain or fever. New Medication: Doxycycline 100 mg p.o. b.i.d. for 2 more days. HOSPITAL COURSE: Mrs. Beasley is an 89-year-old lady with past medical history as stated above that presented to the emergency room on 05/26/16 with complaints of weakness and cough. The history was obtained from her daughter that the patient had productive cough and dyspnea for 3 weeks and had been seen by Dr. Malave and her Lasix had to be increased. On the day of admission, the patient was more lethargic, weak, and had fever and was also found to have lower oxygen saturations. For more details about her presentation, I refer you to her history and physical. She was admitted under the impression of community-acquired pneumonia and later on, rapid influenza A test was positive. The patient responded well to medical treatment with oseltamivir and doxycycline and her mental status returned to baseline. The patient's leukocytosis is resolved. She became afebrile but she was noted to be deconditioned. She was seen in consultation by Physical Therapy and recommendation was for short-term placement for rehab. While in the hospital, the patient's diuretics and antihypertensive had to be discontinued but they are now resumed and she is tolerating it well. She is medically stable for discharge at this time. PHYSICAL EXAMINATION: Vital Signs: Temperature 97.5, heart rate 76, respiratory rate 14, oxygen saturation 96% on room air, blood pressure is 143/ 59. General: The patient is a pleasant elderly lady, sitting up in the chair, in no acute distress. CVS: Normal S1, S2. Regular rate and rhythm. Chest: Breath sounds present bilaterally with no added sounds. Abdomen is soft, nontender, nondistended. Bowel sounds present. Extremities: No edema. Neuro : She is alert, awake, and oriented x3. Able to move all 4 extremities. DIET: Heart healthy diet. ACTIVITIES: As tolerated. DISPOSITION: To home. STATUS WHILE IN THE HOSPITAL: Inpatient. Please keep in mind that this is a summarized version of this patient's hospital stay. If you need more information, please feel free to call me at [phone] or please obtain the full medical records. TIME SPENT: Approximately 45 minutes was spent to complete this discharge. CC: Ana Luisa Oden NP; Dr. Malave; [facility]* [id number]/[facility] #: [id number] MTDD
[2016-05-31] MEDS: Dronedarone TAB* 400 MG PO SCH (09:26)
[2016-05-31] MEDS: Cilostazol TAB* 100 MG PO SCH (09:26)
[2016-05-31] MEDS: Rivaroxaban TAB(*) 15 MG PO SCH (09:26)
[2016-05-31] MEDS: Metoprolol Tartrate TAB* 25 MG PO SCH (09:26)
[2016-05-31] MEDS: DOXYcycline CAP(*) 100 MG PO SCH (09:26)
[2016-05-31 09:31] VITALS: BP 163/54
== END 2016-05-31 12:20 | disposition home or self-care (01) | DRG 871 ==
LOC: ED 22:18 → MEDTELE 05-26 01:31 → MED 05-27 22:12
PROVIDERS: ADMIT Pediatrics; ATTEND Internal Medicine
DX: A41.9 Sepsis, unspecified organism (principal); J09.X1 Influenza due to identified novel influenza A virus with pneumonia; J96.11 Chronic respiratory failure with hypoxia; I13.0 Hypertensive heart and chronic kidney disease with heart failure and stage 1 through stage 4 chronic kidney disease, or unspecified chronic kidney disease; I50.32 Chronic diastolic (congestive) heart failure; I48.0 Paroxysmal atrial fibrillation; Z99.81 Dependence on supplemental oxygen; E87.6 Hypokalemia; J44.9 Chronic obstructive pulmonary disease, unspecified; I35.0 Nonrheumatic aortic (valve) stenosis; N18.3 Chronic kidney disease, stage 3 (moderate); I25.10 Atherosclerotic heart disease of native coronary artery without angina pectoris; I73.9 Peripheral vascular disease, unspecified; E78.5 Hyperlipidemia, unspecified; Z85.3 Personal history of malignant neoplasm of breast; Z79.01 Long term (current) use of anticoagulants; Z79.899 Other long term (current) drug therapy; Z66 Do not resuscitate
CPT/HCPCS: 36415; 71010; 80048; 80053; 81003; 81015; 83605; 83690; 83735; 83880; 84443; 84484; 85025; 85610; 85730; 86140; 87040; 87086; 87502; 93005; 94640; 94760; A9270-GY; J0456; J0696; J2543; J2930; J3480